=== PATIENT | male | born 1980 | race Caucasian/White ===

== ENCOUNTER 2023-08-16 09:58 | Outpatient (REF) | payer BC, SELFPAY ==
[2023-08-16 14:33] LABS: Alanine Aminotransferase 47 U/L (0-40); Albumin Level 4.5 g/dL (3.5-5.0); Alkaline Phosphatase 37 U/L (39-117); Anion Gap 15 (12-20); Aspartate Amino Transferase 33 U/L (5-37); Bilirubin Direct 0.2 mg/dL (0.0-0.5); Bilirubin Total 0.3 mg/dL (0.0-1.0); Blood Urea Nitrogen 11 mg/dL (9-16); Calcium 10.5 mg/dL (8.4-10.2); Carbon Dioxide 28 mmol/L (22-29); Chloride 105 mmol/L (96-108); Cholesterol 243 mg/dL (<200); Estimated Glomerular Filt Rate > 60; Glucose Random 81 mg/dL (60-115); HDL Cholesterol 39 mg/dL (>40); LDL Cholesterol Calculated 180 mg/dL (<100); Sodium 144 mmol/L (135-145); Total Protein 7.7 g/dL (6.5-8.0); Triglycerides 122 mg/dL (<150)
[2023-08-22 14:53] LABS: Testosterone, Free 54.6 pg/mL (35.0-155.0); Testosterone, Total 165 ng/dL (250-1100)
== END 2023-08-16 09:59 | disposition home or self-care (01) ==
LOC: HO.CHCLDS 09:58
PROVIDERS: Visit Provider Student in an Organized Health Care Education/Training Program
DX: I10 Essential (primary) hypertension (principal); N52.9 Male erectile dysfunction, unspecified; F10.10 Alcohol abuse, uncomplicated
CPT/HCPCS: 36415; 80048; 80061; 80076; 84402; 84403